=== PATIENT | male | born 1950 | race Two or more races ===

== ENCOUNTER 2024-08-22 08:33 | Emergency (ER) | payer OTHER ==
[~2024-08-22] VITALS: Ht 180.3 cm; Wt 68.9 kg
[2024-08-22 09:08] VITALS: PULSE 69; RESP 16; TEMP 98.1; O2SAT 96
[2024-08-22 10:46] LABS: Urine Bacteria FEW /hpf (None Seen); Urine Blood 3+ /uL (Negative); Urine Clarity Clear (Clear); Urine Color Light-Yellow (Yellow); Urine Mucus FEW (None Seen); Urine Protein, UAD Negative (Negative); Urine Specific Gravity 1.023 (1.001-1.035); Urine Urobilinogen Normal (Negative); Urine WBC 6 /hpf (0 - 3)
[2024-08-22 11:45] LABS: Basophils # (auto) 0 10 ^3/uL (0-0.2); Basophils % (auto) 0.8 % (0.0-2.0); Eosinophils # (auto) 0.1 10 ^3/uL (0-0.8); Eosinophils % (auto) 1.4 % (0.0-7.0); Lymphocytes # (auto) 1.4 10 ^3/uL (0.4-5.4); Lymphocytes % (auto) 28.2 % (10.0-50.0); Mean Corpuscular Hemoglobin 28.9 pg (28.0-32.0); Mean Corpuscular Hgb Conc. 33.4 g/dL (32.0-36.0); Mean Corpuscular Volume 86.6 fL (80.0-100.0); Monocytes # (auto) 0.4 10 ^3/uL (0-1.3); Monocytes % (auto) 9.1 % (0.0-12.0); Neutrophils % (auto) 60.5 % (37.0-80.0); Platelet Count (auto) 257 10^3/uL (140-450); Red Blood Cells 4.85 10^6/uL (4.5-5.90); Red Cell Distribution Width 14.4 % (11.8-14.3); White Blood Cell 4.9 10^3/uL (4.4-10.8)
[2024-08-22 11:51] LABS: Chloride 111 mmol/L (98-107); Potassium 4.6 mmol/L (3.5-5.1); Sodium 141 mmol/L (136-145)
[2024-08-22 11:52] LABS: Anion Gap 3 (5-15); Carbon Dioxide 27 mmol/L (20-31)
[2024-08-22 11:53] LABS: Calcium 9.7 mg/dL (8.7-10.4)
[2024-08-22 11:57] LABS: BUN/Creatinine Ratio 12.8 (10.0-20.0); Blood Urea Nitrogen 16 mg/dL (9-23); Glucose 99 mg/dL (74-106)
[2024-08-22] MEDS ORDERED: CIPR-173 PO (12:33)
[2024-08-22] MEDS: cefTRIAXone 1GM/50ML D5W 50 ML IV ONE (12:51)
[2024-08-22 14:07] VITALS: BP 135/77; PULSE 69; RESP 16; O2SAT 100
== END 2024-08-22 12:34 | disposition home or self-care (01) ==
LOC: ER 08:33
DX: N41.0 Acute prostatitis (principal); R31.9 Hematuria, unspecified; E78.5 Hyperlipidemia, unspecified; Z88.0 Allergy status to penicillin; Z79.899 Other long term (current) drug therapy
CPT/HCPCS: 36415; 80048; 81001; 85025; 96365; 99285; J0696

== ENCOUNTER 2025-11-12 09:58 | Emergency (ER) | payer OTHER ==
[~2025-11-12] VITALS: Ht 180.3 cm; Wt 82.9 kg
[~2025-11-12 09:58] MED LIST: CIPR-173 PO
[2025-11-12 11:17] VITALS: BP 121/93; PULSE 83; RESP 14; TEMP 97.5; O2SAT 98
--- NOTE | 2025-11-12 11:37 | ED.PDOC ---
Musculoskeletal HPI Comments 75-year-old male patient presents to the clinic for a trip and fall landing on left hand. Patient denies hitting his head. Patient denies any LOC. Patient denies taking any blood thinners. Patient has swelling and inflammation to the 4th digit of the left hand. Patient has a puncture wound at the base of the 4th digit of the left hand. Patient states that pain is tolerable at this time and did not want any pain medications Chief Complaint: Fall Injury Time Seen by MD: 10:43 Primary Care Provider: SHAHAB Reviewed Notes: Nurses Notes, Medications, Allergies Allergies: Coded Allergies: Penicillins (Verified Allergy, Mild, 08/22/24) Home Meds Active Scripts Ciprofloxacin Hcl (Cipro) 500 Mg Tab, 1 TAB PO BID for 10 Days, #20 TAB Prov:GIANCARLO ALLEN MD 08/22/24 Information Source: Patient Mode of Arrival: Ambulatory Location: Left Extremity Location: Hand Severity: Moderate Past Medical History PAST MEDICAL HISTORY: High Lipids Surgical History: Denies all surgeries Family History Family History: Unknown Social History Smoker: Non-Smoker Alcohol: Denies ETOH Use Drugs: Denies Drug Use Lives In: Home Constitutional: denies: chills, diaphoresis, fatigue, fever, malaise, sweats, weakness, others EENTM: denies: blurred vision, double vision, ear bleeding, ear discharge, ear drainage, ear pain, ear ringing, eye pain, eye redness, hearing loss, mouth pain, mouth swelling, nasal discharge, nose bleeding, nose congestion, nose pain, photophobia, tearing, throat pain, throat swelling, voice changes, others Respiratory: denies: cough, hemoptysis, orthopnea, SOB at rest, shortness of breath, SOB with excertion, stridor, wheezing, others Cardiovascular: denies: chest pain, dizzy spells, diaphoresis, Dyspnea on exert ion, edema, irregular heart beat, left arm pain, lightheadedness, palpitations, PND, syncope, others Gastrointestinal: denies: abdomen distended, abdominal pain, blood streaked bowels, constipated, diarrhea, dysphagia, difficulty swallowing, hematemesis, melena, nausea, poor appetite, poor fluid intake, rectal bleeding, rectal pain, vomiting, others Genitourinary: denies: burning, dysuria, flank pain, frequency, hematuria, incontinence, penile discharge, penile sore, pain, testicle pain, testicle swelling, urgency, others Musculoskeletal: reports: joint swelling Integumetry: reports: laceration Allergic/Immunocompromised: denies: Difficulty Healing, Frequent Infections, Hives, Itching, others Hematologic/Lymphatic: denies: anemia, blood clots, easy bleeding, easy bruising, swollen glands, others Endocrine: denies: excessive hunger, excessive sweating, excessive thirst, excessive urination, flushing, intolerance to cold, intolerance to heat, unexplained weight gain, unexplained weight loss, others Psychiatric: denies: anxiety, bipolar disorder, depression, hopeless, panic disorder, schizophrenia, sleepless, suicidal, others All Other Systems: Reviewed and Negative Physical Exam General Appearance: No Apparent Distress, Normal HEENT: Normal ENT Inspection, Pharynx Normal, TMs Normal Neck: Full Range of Motion, Non-Tender, Normal, Normal Inspection Respiratory: Chest Non-Tender, Lungs Clear, No Accessory Muscle Use, No Respiratory Distress, Normal Breath Sounds Cardiovascular: No Edema, No JVD, No Murmur, No Gallop, Normal Peripheral Pulses, Regular Rate/Rhythm Breast Exam: Deferred Gastrointestinal: No Organomegaly, Non Tender, No Pulsatile Mass, Normal Bowel Sounds, Soft Genitalia: Deferred Pelvic: Deferred Rectal: Deferred Extremities: Inflammation (Fourth digit of the left hand), No calf tenderness, Normal capillary refill, No pedal edema, Swelling (4th digit of left hand), Tender (4th digit of left hand) Musculoskeletal : Apperance: Normal Neurologic: Alert, infantryman II-XII nml as Tested, No Motor Deficits, Normal Affect, Normal Mood, No Sensory Deficits Cerebellar Function: Normal Reflexes: Normal Skin: Dry, Lacerations (Puncture wound on the left 4th digit), Normal Color, Warm Lymphatic: No Adenopathy Was a procedure done? Was a procedure done?: No Differential Diagnosis EXT Differential Diagnosis: Fracture, Dislocation, Laceration X-Ray, Labs, Meds, VS Vital Signs Date Time Temp Pulse Resp B/P (MAP) Pulse Ox O2 Delivery O2 Flow Rate FiO2 11/12/25 11:17 83 14 98 Room Air 11/12/25 11:17 97.5 83 14 121/93 (102) 98 97.5 11/12/25 09:59 97.5 83 14 121/93 98 97.5 X-Ray, Labs, Meds, VS Comment [facility] [id number] [facility] [id number] Ph: [phone] DIAGNOSTIC IMAGING Diagnostic Imaging Report : [id number] Signed PATIENT: KJ SOTELO ACCT: [id number] UNIT: [id number] : 1950 LOC: ER ROOM / BED: / AGE / SEX: 75 / M ADM STATUS: REG ER SERVICE [id number] ORDERING PHYSICIAN: NAKIA VALLE PROCEDURE(s): LHAN - L HAND 3V XRAY REASON: 4th digit pain, inflammation, trauma, deformity ORDER NUMBER(s): [id number], ACCESSION NUMBER(s): [id number] XY L HAND 3V XRAY, INDICATION: 4th digit pain, inflammation, trauma, deformity TECHNICAL DATA: Frontal, oblique and lateral views were obtained of the left hand. COMPARISON: None FINDINGS: Dislocation of the 4th PIP joint. Soft tissues are swollen. IMPRESSION: Dislocation of the 4th PIP joint. ATED BY: ANURAG LOW MD DICTATED DATE/TIME: 11/12/25 123 SIGNED BY: ANURAG LOW MD SIGNED DATE/TIME: 11/12/25 123 On re-evaluation patient has symptomatic improvement. Patient is stable for discharge at this time. All test results and diagnostic imaging have been interpreted. All diagnostic findings, discharge care, and education instruction provided to the patient. Follow-up with PCP in 2-3 days Patient verbalized understanding, discharge instructions and agrees to treatment plan Vital signs are stable Patient is ambulatory Patient advised of which symptoms necessitate a return visit to the emergency room. Patient to return emergency room for any new worsening symptoms. Patient is aware that the purpose of this visit is for an acute medical emergency requiring emergent stabilization. Chronic conditions, including malignancies have not been ruled out. Patient is instructed to follow up with PCP as directed for continued care and workup. If unable to arrange follow up, patient is to return to the emergency room for reassessment. Patient was given verbal and written discharge instructions and acknowledges understanding Time of 1ST Reevaluation: 11:36 Reevaluation 1ST: Unchanged Time of 2ND Reevaluation: 12:30 Reevaluation 2ND: Improved Patient Education/Counseling: Diagnosis, Treatment, Prognosis Family Education/Counseling: No Family Present Departure 1 Departure Time of Disposition: 12:33 Impression: Primary Impression: Dislocation of finger, open Qualified Codes: S63.259A - Unspecified dislocation of unspecified finger, initial encounter; S61.209A - Unspecified open wound of unspecified finger without damage to nail, initial encounter Disposition: 01 HOME / SELF CARE / HOMELESS Condition: Fair Discharged With: Self Critical Care Note Critical Care Time?: No Stability Stability form required: No Heart Score Heart Score: Heart Score Response (Comments) Value History N/A 0 EKG N/A 0 Age N/A 0 Risk Factors N/A 0 Troponin N/A 0 Total 0 NAKIA VALLE Nov 12, 2025 11:37
--- NOTE | 2025-11-12 12:35 | DVH ---
XY L HAND 3V XRAY, INDICATION: 4th digit pain, inflammation, trauma, deformity TECHNICAL DATA: Frontal, oblique and lateral views were obtained of the left hand. COMPARISON: None FINDINGS: Dislocation of the 4th PIP joint. Soft tissues are swollen. IMPRESSION: Dislocation of the 4th PIP joint.
== END 2025-11-12 13:04 | disposition home or self-care (01) ==
LOC: ER 09:58
DX: S63.255A Unspecified dislocation of left ring finger, initial encounter (principal); X58.XXXA Exposure to other specified factors, initial encounter; Y93.89 Activity, other specified; Y92.89 Other specified places as the place of occurrence of the external cause; Y99.8 Other external cause status
CPT/HCPCS: 29130; 73130